=== PATIENT | female | born 1995 | race African-American/Black ===

== ENCOUNTER 2018-09-11 20:24 | Emergency (ER) | payer SELFPAY ==
[~2018-09-11] VITALS: Ht 165.1 cm; Wt 127.0 kg
[2018-09-11] MEDS: PENICILLIN G BENZATHINE LA 1.2 MU TBX IM NR ×2 (20:50→21:30)
[2018-09-11] MEDS ORDERED: PENICILLIN G BENZATHINE LA 1.2 MU TBX ONE (21:07)
[2018-09-11 21:37] VITALS: BP 139/87
[2018-09-12] MEDS ORDERED: TYLENOL WITH C1 EACH PO (18:05)
== END 2018-09-11 21:38 | disposition home or self-care (01) ==
LOC: ER 20:24
DX: J02.0 Streptococcal pharyngitis (principal); E66.9 Obesity, unspecified; Z68.42 Body mass index [BMI] 45.0-49.9, adult; Z82.49 Family history of ischemic heart disease and other diseases of the circulatory system; L04.0 Acute lymphadenitis of face, head and neck
CPT/HCPCS: 99282; J0561

== ENCOUNTER 2018-09-12 15:10 | Emergency (ER) | payer SELFPAY ==
[~2018-09-12] VITALS: Ht 165.1 cm; Wt 127.0 kg
[2018-09-12] MEDS ORDERED: KETOROLAC TROMETHAMINE 60 MG/2 ML VIAL IM ONE (18:00)
[2018-09-12] MEDS ORDERED: DEXAMETHASONE SOD PHOS 10 MG/1 ML VIAL IV ONE (18:00)
[2018-09-12] MEDS ORDERED: TYLENOL WITH C1 EACH PO (18:05)
[2018-09-12 19:05] VITALS: BP 153/89
== END 2018-09-12 19:05 | disposition home or self-care (01) ==
LOC: ER 15:10
DX: R51 Headache (principal); J02.0 Streptococcal pharyngitis; E66.9 Obesity, unspecified; Z68.42 Body mass index [BMI] 45.0-49.9, adult; F17.220 Nicotine dependence, chewing tobacco, uncomplicated; Z83.3 Family history of diabetes mellitus; Z82.49 Family history of ischemic heart disease and other diseases of the circulatory system
CPT/HCPCS: 96372; 99283; J1100; J1885

== ENCOUNTER 2020-05-02 12:26 | Emergency (ER) | payer SELFPAY ==
[~2020-05-02] VITALS: Ht 165.1 cm; Wt 127.0 kg
[~2020-05-02 12:26] MED LIST: TYLENOL WITH C1 EACH PO
[2020-05-02] MEDS ORDERED: HYDROCODONE/APAP 7.5MG-325MG 1 EA TAB PO ONE (14:00)
[2020-05-02 14:46] VITALS: BP 170/78
== END 2020-05-02 14:47 | disposition home or self-care (01) ==
LOC: ER 13:08
DX: M79.672 Pain in left foot (principal); M79.89 Other specified soft tissue disorders
CPT/HCPCS: 99283